=== PATIENT | male | born 1960 | race Caucasian/White ===

== ENCOUNTER → 2018-03-26 09:20 | Outpatient (CLI) | payer OTHER, SELFPAY ==
--- NOTE | 2018-03-26 09:20 | DT_ITS ---
This patient was seen during an EMR downtime March 24, 2018 - March 31, 2018. This patient may have a combination of paper and electronic documentation or all paper documentation. All documentation is viewable within the e-chart portion of [employer] for each patient visit.
[2018-03-30 15:23] LABS: Hematocrit 45.2 % (40-54); Mean Corpuscular Volume 87.4 fL (80-94); Red Blood Count 5.17 M/mm3 (4.6-6.2)
[2018-03-30 15:24] LABS: Absolute Lymphocyte Count 1.61 X10^3/ul (0.83-4.51); Absolute Neutrophil Count 3.6 X10^3/uL (2.0-7.7); Basophil# 0.02 X10^3/uL; Basophil% 0.3 % (0-1); Eosinophil# 0.19 X10^3/uL; Eosinophils% 3.2 % (0-5); Lymphocyte # 1.61 X10^3/ul (4.0); Lymphocyte % 26.7 % (19-41); Mean Corp Hgb Conc 35.4 g/gl (32-36); Mean Corpuscular Hgb 30.9 pg (27.0-32.0); Mean Platelet Vol. 9.7 fl (6.2-12.0); Monocyte# 0.57 X10^3/uL; Monocyte% 9.5 % (0-10); Neutrophil # 3.62 X10^3/uL (2.7-7.7); Neutrophil % 60.1 % (47-70); POSITIVE COUNT NO; POSITIVE DIFFERENTIAL NO; POSITIVE MORPHOLOGY NO; Platelet Count 284 K/mm3 (150-450); RBC Distribution Width CV 12.8 % (11.6-14.6); RBC Distribution Width SD 40.9 fl (35.1-43.9)
[2018-03-31 16:19] LABS: BUN 13 mg/dL (7-18); BUN/Creat Ratio 13.1 RATIO (10-20); Creatinine, Serum 0.99 mg/dL (0.70-1.30); EST Glomerular Filtration Rate 83 mL/min (>60); Est Glom Filt Rate - Afr Amer 101 mL/min (>60); Glucose 93 mg/dL (74-106)
[2018-03-31 16:20] LABS: Anion Gap 9 (5-15); Calcium,Total 8.9 mg/dL (8.5-10.1); Chloride 106 mmol/L (98-107); Cholesterol 161 mg/dL (200); High Density Lipoprotein 44 mg/dL; PSA,Total - Annual Screen 0.49 ng/mL (0.00-4.00); Potassium 4.2 mmol/L (3.5-5.1); Sodium Level 142 mmol/L (136-145); Triglycerides 163 mg/dL; Very Low Density Lipoprotein 33 mg/dL (5-40)
== END ==
PROVIDERS: Family Provider Family Medicine; PCP Family Medicine; Visit Provider Family Medicine
DX: Z00.00 Encounter for general adult medical examination without abnormal findings (principal); Z20.828 Contact with and (suspected) exposure to other viral communicable diseases
CPT/HCPCS: 36415; 80048; 80061; 84153; 85025; 86663; 86664; 86665; G0103

== ENCOUNTER → 2019-05-08 | Outpatient (CLI) | payer OTHER, SELFPAY ==
[2019-05-08 10:16] LABS: Anion Gap 6 (5-15); BUN 16 mg/dL (7-18); BUN/Creat Ratio 15.1 RATIO (10-20); Calcium,Total 9.1 mg/dL (8.5-10.1); Chloride 107 mmol/L (98-107); Cholesterol 173 mg/dL (200); Creatinine, Serum 1.06 mg/dL (0.70-1.30); EST Glomerular Filtration Rate 76 mL/min (>60); Est Glom Filt Rate - Afr Amer 92 mL/min (>60); Glucose 102 mg/dL (74-106); High Density Lipoprotein 39 mg/dL; PSA,Total - Annual Screen 0.39 ng/mL (0.00-4.00); Potassium 4.1 mmol/L (3.5-5.1); Sodium Level 140 mmol/L (136-145); Triglycerides 164 mg/dL; Very Low Density Lipoprotein 33 mg/dL (5-40)
== END | disposition home or self-care (01) ==
LOC: MTLAB 07:10
PROVIDERS: Family Provider Family Medicine; PCP Family Medicine; Referring Provider Family Medicine; Visit Provider Family Medicine
DX: E78.00 Pure hypercholesterolemia, unspecified (principal); Z12.5 Encounter for screening for malignant neoplasm of prostate; R03.0 Elevated blood-pressure reading, without diagnosis of hypertension
CPT/HCPCS: 36415; 80048; 80061; 84153; G0103

== ENCOUNTER → 2020-12-21 08:08 | Outpatient (CLI) | payer OTHER, SELFPAY ==
[2020-12-21 10:31] LABS: ALB/GLOB Ratio 1.3 RATIO (0.9-2.4); AST(SGOT) 24 U/L (15-37); Alanine Aminotransfer ALT/SGPT 25 U/L (16-61); Albumin, Serum 3.8 g/dL (3.2-5.0); Alkaline Phosphatase 69 U/L (45-117); Anion Gap 6 (5-15); BUN 16 mg/dL (7-18); BUN/Creat Ratio 13.9 RATIO (10-20); Chloride 107 mmol/L (98-107); Cholesterol 172 mg/dL (200); Creatinine, Serum 1.15 mg/dL (0.70-1.30); EST Glomerular Filtration Rate 69 mL/min (>60); Est Glom Filt Rate - Afr Amer 83 mL/min (>60); Glucose 100 mg/dL (74-106); High Density Lipoprotein 47 mg/dL; PSA,Total - Annual Screen 0.42 ng/mL (0.00-4.00); Potassium 4.4 mmol/L (3.5-5.1); Protein, Total 6.8 g/dL (6.4-8.2); Sodium Level 141 mmol/L (136-145); Triglycerides 132 mg/dL; Very Low Density Lipoprotein 26 mg/dL (5-40)
== END ==
PROVIDERS: PCP Family Medicine; Referring Provider Family Medicine; Visit Provider Family Medicine
DX: E78.00 Pure hypercholesterolemia, unspecified (principal); Z12.5 Encounter for screening for malignant neoplasm of prostate
CPT/HCPCS: 36415; 80053; 80061; 84153; G0103

== ENCOUNTER → 2022-05-04 | Outpatient (CLI) | payer OTHER, SELFPAY ==
[2022-05-04 10:03] LABS: Absolute Neutrophil Count 4.2 X10^3/uL (2.0-7.7); Basophil# 0.03 X10^3/uL; Basophil% 0.4 % (0-1); Eosinophil# 0.18 X10^3/uL; Eosinophils% 2.6 % (0-5); Hematocrit 48.5 % (40-54); Hemoglobin 16.6 g/dL (13.0-16.5); Lymphocyte % 27.1 % (19-41); Mean Corp Hgb Conc 34.2 g/dL (32-36); Mean Corpuscular Hgb 30.5 pg (27.0-32.0); Mean Corpuscular Volume 89.2 fL (80-94); Mean Platelet Vol. 9.7 fl (6.2-12.0); Monocyte# 0.66 X10^3/uL; Monocyte% 9.4 % (0-10); NRBC Flagged by Analyzer 0 % (0-5); Neutrophil # 4.21 X10^3/uL (2.7-7.7); Neutrophil % 60.1 % (47-70); Platelet Count 290 K/mm3 (150-450); RBC Distribution Width CV 12.7 % (11.6-14.6); RBC Distribution Width SD 41.3 fl (35.1-43.9); Red Blood Count 5.44 M/mm3 (4.6-6.2)
[2022-05-04 10:27] LABS: ALB/GLOB Ratio 1.2 RATIO (0.9-2.4); AST(SGOT) 19 U/L (15-37); Alanine Aminotransfer ALT/SGPT 30 U/L (16-61); Albumin, Serum 3.9 g/dL (3.2-5.0); Alkaline Phosphatase 74 U/L (45-117); Anion Gap 5 (5-15); BUN 15 mg/dL (7-18); BUN/Creat Ratio 14.9 RATIO (10-20); Calcium,Total 9.2 mg/dL (8.5-10.1); Chloride 106 mmol/L (98-107); Cholesterol 197 mg/dL (200); Creatinine, Serum 1.01 mg/dL (0.70-1.30); EST Glomerular Filtration Rate 80 mL/min (>60); Est Glom Filt Rate - Afr Amer 96 mL/min (>60); Globulin 3.2 g/dL (2.2-4.2); Glucose 101 mg/dL (74-106); High Density Lipoprotein 47 mg/dL; PSA,Total - Annual Screen 0.48 ng/mL (0.00-4.00); Potassium 4.2 mmol/L (3.5-5.1); Protein, Total 7.1 g/dL (6.4-8.2); Sodium Level 138 mmol/L (136-145); Triglycerides 210 mg/dL; Very Low Density Lipoprotein 42 mg/dL (5-40)
== END | disposition home or self-care (01) ==
PROVIDERS: PCP Family Medicine; Referring Provider Family Medicine; Visit Provider Family Medicine
DX: E78.00 Pure hypercholesterolemia, unspecified (principal); Z80.42 Family history of malignant neoplasm of prostate; Z12.5 Encounter for screening for malignant neoplasm of prostate
CPT/HCPCS: 36415; 80053; 80061; 84153; 85025; G0103

== ENCOUNTER → 2023-12-27 | Outpatient (CLI) | payer OTHER, SELFPAY ==
--- OUTSIDE RECORDS SUMMARY | 2023-12-27 07:13 | XMS RPT_ITS | CCD ---
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 Name Role Phone Sunshine Carvajal LPN N Unavailable [phone] Sunshine Carvajal LPN Unavailable [phone] Allergies Allergy Classification Reported Allergen(s) Allergy Type Date of Onset Reaction(s) Facility (2 sources) Sulfonamides (Antibiotic) drug allergy 03-24-2017 [facility] Work Phone: Medications Completed/Discontinued Medications Medication Drug Class(es) Dates Sig (Normalized) Sig (Original) amoxicillin 500 mg oral capsule (2 sources) Penicillin-class Antibacterial Start: 03-24-2017 End: 04-03-2017 take 1 tablet by mouth twice daily AMOXICILLIN 500 MG CAPS One tablet by mouth twice daily AMOXICILLIN [id number] Nicolás A Dimas [facility]SE[facility] LIAISON-C atorvastatin 10 mg oral tablet (2 sources) HMG-CoA Reductase Inhibitor Start: 03-24-2017 LIPITOR 10 MG TABS as directed ATORVASTATIN CALCIUM [id number] Nicolás A Dimas [facility]IMBURSEMENT LIAISON-C Problems Active Problems Problem Classification Problem Date Documented Da te Episodic/Chronic Essential hypertension (2 sources) Hypertensive disorder; Translations: [Essential (primary) hypertension] 03-24-2017 Chronic Past or Other Problems Problem Classification Problem Date Documented Date Episodic/Chronic Other upper respiratory infections (4 sources) Streptococcal sore throat; Translations: [Acute pharyngitis] Onset: 03-24-2017 03-24-2017 Episodic Results Test Name Value Interpretation Reference Range Facil ity Vital Signs Date Time Vital Sign Value Performing Clinician Faci lity 03-24-2017 09:17-0400 BMI (Body Mass Index) 22.45 kg/m2 Sunshine Carvajal LPN [facility] Work Phone: 03-24-2017 09:17-0400 Body Temperature 104.2 [degF] Sunshine Carvajal LPN [facility] Work Phone: 03-24-2017 09:17-0400 BP Diastolic 78 mm[Hg] Sunshine Carvajal LPN [facility] Work Phone: 03-24-2017 09:17-0400 BP Systolic 132 mm[Hg] Sunshine Carvajal LPN [facility] Work Phone: 03-24-2017 09:17-0400 Height 191.77 cm Sunshine Carvajal LPN [facility] Work Phone: 03-24-2017 09:17-0400 Pulse (Heart Rate) 106 /min Sunshine Carvajal LPN [facility] Work Phone: 03-24-2017 09:17-0400 Pulse Oximetry 97 % Sunshine Carvajal LPN [facility] Work Phone: 03-24-2017 09:17-0400 Respiratory Rate 16 /min Sunshine Carvajal LPN [facility] Work Phone: 03-24-2017 09:17-0400 Weight 82.56 kg Sunshine Carvajal LPN [facility] Work Phone: Plan of Treatment Date Care Activity Detail Author Start: 03-24-2017 End: 03-24-2017 Appointment Appointment [facility] Work Phone: Patient Education [facility] Work Phone: Additional Source Comments FOR RECORDS PERTAINING TO PATIENTS WHO ARE OR HAVE BEEN ENROLLED IN A CHEMICAL DEPENDENCY/SUBSTANCEABUSE PROGRAM, SOME INFORMATION MAY BE OMITTED. This clinical summary was aggregated from multiple sources. Caution should be exercised in using it in the provision of clinical care. This summary normalizes information from multiple sources, and as a consequence, information in this document may materially change the coding, format and clinical context of patient data. In addition, data may be omitted in some cases. CLINICAL DECISIONS SHOULD BE BASED ON THE PRIMARY CLINICAL RECORDS. [employer] [facility]. provides no warranty or guarantee of the accuracy or completeness of information in this document.
[2023-12-27 10:33] LABS: Hemoglobin A1c 5.3 % (3.8-5.6)
[2023-12-27 10:44] LABS: Cholesterol 204 mg/dL (200); High Density Lipoprotein 50 mg/dL; PSA,Total - Annual Screen 0.49 ng/mL (0.00-4.00); Triglycerides 119 mg/dL; Very Low Density Lipoprotein 24 mg/dL (5-40)
== END | disposition home or self-care (01) ==
LOC: MTLAB 07:11
PROVIDERS: PCP Family Medicine; Referring Provider Nurse Practitioner Family; Visit Provider Nurse Practitioner Family
DX: Z13.1 Encounter for screening for diabetes mellitus (principal); Z12.5 Encounter for screening for malignant neoplasm of prostate; Z13.220 Encounter for screening for lipoid disorders
CPT/HCPCS: 36415; 80061; 83036; 84153; G0103

== ENCOUNTER → 2025-03-08 | Outpatient (CLI) | payer MEDICARE, SELFPAY ==
[2025-03-08 12:30] LABS: Absolute Lymphocyte Count 1.26 X10^3/uL (0.83-4.51); Absolute Neutrophil Count 2.8 X10^3/uL (2.0-7.7); Basophil# 0.03 X10^3/uL; Basophil% 0.6 % (0-1); Eosinophil# 0.11 X10^3/uL; Eosinophils% 2.4 % (0-5); Hematocrit 47.8 % (40-54); Hemoglobin 16.6 g/dL (13.0-16.5); Lymphocyte # 1.26 X10^3/ul (0.83-4.51); Lymphocyte % 27.2 % (19-41); Mean Corp Hgb Conc 34.7 g/dL (32-36); Mean Corpuscular Hgb 30.2 pg (27.0-32.0); Mean Corpuscular Volume 87.1 fL (80-94); Mean Platelet Vol. 9.4 fl (6.2-12.0); Monocyte# 0.42 X10^3/uL; Monocyte% 9.1 % (0-10); NRBC Flagged by Analyzer 0 % (0-5); Neutrophil # 2.82 X10^3/uL (2.7-7.7); Neutrophil % 60.7 % (47-70); Platelet Count 291 K/mm3 (150-450); RBC Distribution Width CV 12.7 % (11.6-14.6); RBC Distribution Width SD 40.6 fl (35.1-43.9); Red Blood Count 5.49 M/mm3 (4.6-6.2); White Blood Count 4.6 K/mm3 (4.4-11.0)
[2025-03-08 14:08] LABS: ALB/GLOB Ratio 1.9 RATIO (0.9-2.4); AST(SGOT) 24 U/L (<=37); Alanine Aminotransfer ALT/SGPT 16 U/L (<=46); Albumin, Serum 4.7 g/dL (3.4-4.8); Alkaline Phosphatase 74 U/L (40-129); Anion Gap 11 (5-15); BUN 15 mg/dL (4-19); BUN/Creat Ratio 15.3 RATIO (10-20); Calcium,Total 9.7 mg/dL (7.6-11.0); Carbon Dioxide 24.2 mmol/L (21.0-32.0); Chloride 102 mmol/L (98-108); Cholesterol 228 mg/dL (<=200); EST Glomerular Filtration Rate 84 (>60); Globulin 2.5 g/dL (2.2-4.2); Glucose 108 mg/dL (70-99); High Density Lipoprotein 47 mg/dL; Low Density Lipoprotein Calc. 152 mg/dL; Potassium 4.4 mmol/L (3.3-5.1); Protein, Total 7.3 g/dL (5.9-8.4); Sodium Level 137 mmol/L (133-145); Total Bilirubin 0.77 mg/dL (0.00-1.30); Triglycerides 146 mg/dL; Very Low Density Lipoprotein 29 mg/dL (5-40)
[2025-03-08 14:12] LABS: PSA,Total - Annual Screen 0.51 ng/mL (0.02-4.00); Vitamin D,25 Hydroxy 26.2 ng/mL (30-100)
== END | disposition home or self-care (01) ==
PROVIDERS: PCP Family Medicine; Referring Provider Family Medicine; Visit Provider Family Medicine
DX: R03.0 Elevated blood-pressure reading, without diagnosis of hypertension (principal); Z13.1 Encounter for screening for diabetes mellitus; E78.00 Pure hypercholesterolemia, unspecified; Z12.5 Encounter for screening for malignant neoplasm of prostate
CPT/HCPCS: 36415; 80053; 80061; 82306; 84153; 85025; G0103

== ENCOUNTER → 2025-04-15 | Outpatient (CLI) | payer MEDICARE, SELFPAY ==
--- NOTE | 2025-04-15 08:03 | ECHOD_ITS ---
Reason For Study Reason For Study: Left Atrial Enlargement Procedure This was a 2D Doppler, Color Flow transthoracic echocardiogram. Exam performed in department. Left Ventricle Normal size and thickness. The LV ejection fraction is 65 %. Normal diastololic function. Right Ventricle Normal right ventricle. Atria The left and right atria are normal. Mitral Valve Normal mitral valve. Tricuspid Valve Trivial tricuspid valve insufficiency. Normal pulmonary artery pressure. Aortic Valve Trisinus/trileaflet aortic valve. Pulmonic Valve The pulmonic valve is not well visualized. Great Vessels Normal sized aortic root. Pericardium/Pleural No pericardial effusion. MMode/2D Measurements & Calculations LVIDd: 5.5 cm IVSd: 1.1 cm Ao root diam: 3.6 cm LVIDs: 3.4 cm LVPWd: 0.88 cm RVDd: 3.8 cm FS: 39.1 % LAV(MOD-bp): 20.6 ml LVAd ap4: 27.1 cm2 SV(MOD-sp4): 54.5 ml LAV(MOD-bp) Indexed: 9.9 ml/m2 LVLd ap4: 7.2 cm SI(MOD-sp4): 26.3 ml/m2 LAV(MOD-sp2): 20.4 ml EDV(MOD-sp4): 84.9 ml LAV(MOD-sp4): 20.6 ml EDV(sp4-el): 86.2 ml LVAs ap4: 14.2 cm2 LVLs ap4: 5.8 cm ESV(MOD-sp4): 30.4 ml ESV(sp4-el): 29.5 ml EF(MOD-sp4): 64.2 % EF(sp4-el): 65.8 % SV(sp4-el): 56.8 ml LA A4 area: 9.8 cm2 LA dimension(2D): 2.9 cm RA A4 area: 13.9 cm2 TAPSE: 2.5 cm Time Measurements MV dec time: 0.17 sec Doppler Measurements & Calculations MV E max jamison: 77.0 cm/sec Lat Peak E' Jamison: 11.3 cm/sec Med Peak E' Jamison: 11.0 cm/sec MV A max jamison: 72.1 cm/sec E/E' lat: 6.8 E/E' med: 7.0 MV E/A: 1.1 MV V2 max: 103.9 cm/sec MV P1/2t max jamison: 103.9 cm/sec Ao V2 max: 129.0 cm/sec MV max P.3 mmHg MV P1/2t: 70.1 msec Ao max P.7 mmHg MV V2 mean: 60.8 cm/sec Ao V2 mean: 98.5 cm/sec MV mean P.7 mmHg MV dec slope: 433.9 cm/sec2 Ao mean P.3 mmHg MV V2 VTI: 24.3 cm MVA(P1/2t): 3.1 cm2 Ao V2 VTI: 29.0 cm AV (velocity ratio): 0.86 LV V1 max: 120.3 cm/sec PA V2 max: 94.1 cm/sec TR max jamison: 198.4 cm/sec LV V1 max P.8 mmHg TR max P.7 mmHg LV V1 mean P.4 mmHg LV V1 mean: 87.1 cm/sec LV V1 VTI: 25.0 cm ECHO/Echo Complete Interpretation Summary The LV ejection fraction is 65 %. Ordering Physician: Arlene Cadrenas Referring Physician: Arlene Cardenas Performed By: Joey Tran RCS
--- OUTSIDE RECORDS SUMMARY | 2025-04-15 08:27 | XMS RPT_ITS | CCD ---
Author Organization [facility] Care Team Providers Care Senior Insight Manager [employer] Name Role Phone Sunshine Carvajal LPN Unavailable [phone] Sunshine Carvajal LPN Unavailable [phone] ALBERTO BROWN, DR GREEN Primary Care Physician NATANAEL BROWN, DR GUERRA Attending Unavailabl e DR SHYLA DOMINGUEZ MD Primary Care Unavailable Arlene Cardenas Referring Unavailable Arlene Cardenas Attending Unavailable Arlene Cardenas Primary Care Unavailable TheresaArlene Primary Care Unavailable Arlene Cardenas Referring Unavailable Arlene Cardenas Attending Unavailable Allergies Allergy Classification Reported Allergen(s) Allergy Type Date of Onset Reaction(s) Facility (2 sources) Sulfonamides (Antibiotic) drug allergy 03-24-2017 [facility] Work Phone: (1 source) Erythromycin; Translations: [erythromycin] Drug Allergy [facility] (1 source) Sulfonamide; Translations: [sulfa drugs] Drug allergy [facility] Medications Completed/Discontinued Medications Medication Drug Class(es) Dates Sig (Normalized) Sig (Original) amoxicillin 500 mg oral capsule (2 sources) Penicillin-class Antibacterial Start: 03-24-2017 End: 04-03-2017 take 1 tablet by mouth twice daily AMOXICILLIN 500 MG CAPS One tablet by mouth twice daily AMOXICILLIN [id number] Nicolás Mauricio Dimas 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 atorvastatin 10 mg oral tablet (2 sources) HMG-CoA Reductase Inhibitor Start: 03-24-2017 LIPITOR 10 MG TABS as directed ATORVASTATIN CALCIUM [id number] Nicolás Dimas 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 Problems Active Problems Problem Classification Problem Date Documented Da te Episodic/Chronic Essential hypertension (2 sources) Hypertensive disorder; Translations: [Essential (primary) hypertension] 03-24-2017 Chronic Other and ill-defined heart disease (1 source) Cardiomegaly; Translations: [Cardiomegaly] Onset: 04-08-2025 Chronic Other circulatory disease (1 source) Elevated blood-pressure reading, without diagnosis of hypertension; Translations: [Elevated blood-pressure reading, without diagnosis of hypertension] Onset: 03-12-2025 Episodic Past or Other Problems Problem Classification Problem Date Documented Date Episodic/Chronic Other upper respiratory infections (4 sources) Streptococcal sore throat; Translations: [Acute pharyngitis] Onset: 03-24-2017 03-24-2017 Episodic Results Test Name Value Interpretation Reference Range Facility CBC W/Diff, Automatedon 02-18 Absolute Lymph 1.26 X10 3/uL Normal 0.83-4.51 [facility] Comment on above: Order Comment: Order Date: 03/08/25 Order Info: 0184-1 - CBCD Performed By: #### L 100.0100, L500.4050, L501.9910, L500.4100 #### [facility] [address] [facility] [address] Absolute Neut 2.8 X10 3/uL Normal 2.0-7.7 [facility] Comment on above: Order Comment: Order Date: 03/08/25 Order Info: 0184-1 - CBCD Performed By: #### L 100.0100, L500.4050, L501.9910, L500.4100 #### [facility] [address] [place], [address] Basophils/100 WBC (Bld) 0.6 % Normal 0-1 [facility] Comment on above: Order Comment: Order Date: 03/08/25 Order Info: 0184-1 - CBCD Performed By: #### L 100.0100, L500.4050, L501.9910, L500.4100 #### [facility] [address] [facility] [address] Eosinophils/100 WBC (Bld) 2.4 % Normal 0-5 [facility] Comment on above: Order Comment: Order Date: 03/08/25 Order Info: 0184-1 - CBCD Performed By: #### L 100.0100, L500.4050, L501.9910, L500.4100 #### [facility] [address] [place], [address] Erythrocyte distribution width (RBC) [Ratio] 12.7 % Normal 11.6-14.6 [facility] Comment on above: Order Comment: Order Date: 03/08/25 Order Info: 0184- - CBCD Performed By: #### L 100.0100, L500.4050, L501.9910, L500.4100 #### [facility] [address] [place], [address] Hematocrit (Bld) [Volume fraction] 47.8 % Normal 40-54 [facility] Comment on above: Order Comment: Order Date: 03/08/25 Order Info: 0184- - CBCD Performed By: #### L 100.0100, L500.4050, L501.9910, L500.4100 #### [facility] [address] [place], [address] Hemoglobin (Bld) [Mass/Vol] 16.6 g/dL High 13.0-16.5 [facility] Comment on above: Order Comment: Order Date: 03/08/25 Order Info: 0184-1 - CBCD Performed By: #### L 100.0100, L500.4050, L501.9910, L500.4100 #### [facility] [address] [place], [address] IG% 0.000 Normal 0.0-0.9 [facility] Comment on above: Order Comment: Order Date: 03/08/25 Order Info: 0184-1 - CBCD Result Comment: IG% - Immature Granulocytes (promyelocytes, myelocytes and metamyelocytes) > 1% indicates that a LEFT SHIFT is Present. Performed By: #### L 100.0100, L500.4050, L501.9910, L500.4100 #### [facility] [address] [place], [address] Lymphocytes/100 WBC (Bld) 27.2 % Normal 19-41 [facility] Comment on above: Order Comment: Order Date: 03/08/25 Order Info: 0184-1 - CBCD Performed By: #### L 100.0100, L500.4050, L501.9910, L500.4100 #### [facility] [address] [place], [address] MCH (RBC) [Entitic mass] 30.2 pg Normal 27.0-32.0 [facility] Comment on above: Order Comment: Order Date: 03/08/25 Order Info: 018- - CBCD Performed By: #### L 100.0100, L500.4050, L501.9910, L500.4100 #### [facility] [address] [place], [address] MCHC (RBC) [Mass/Vol] 34.7 g/dL Normal 32-36 [facility] Comment on above: Order Comment: Order Date: 03/08/25 Order Info: 0184-1 - CBCD Performed By: #### L 100.0100, L500.4050, L501.9910, L500.4100 #### [facility] [address] [place], [address] MCV (RBC) [Entitic vol] 87.1 fL Normal 80-94 [facility] Comment on above: Order Comment: Order Date: 03/08/25 Order Info: 0184-1 - CBCD Performed By: #### L 100.0100, L500.4050, L501.9910, L500.4100 #### [facility] [address] [place], [address] Monocytes/100 WBC (Bld) 9.1 % Normal 0-10 [facility] Comment on above: Order Comment: Order Date: 03/08/25 Order Info: 0184-1 - CBCD Performed By: #### L 100.0100, L500.4050, L501.9910, L500.4100 #### [facility] [address] [place], [address] Neutrophils/100 WBC (Bld) 60.7 % Normal 47-70 [facility] Comment on above: Order Comment: Order Date: 03/08/25 Order Info: 0184-1 - CBCD Performed By: #### L 100.0100, L500.4050, L501.9910, L500.4100 #### [facility] [address] [place], [address] Nucleated RBC (Bld) [#/Vol] 0 10*3/uL Normal 0-5 [facility] Comment on above: Order Comment: Order Date: 03/08/25 Order Info: 0184-1 - CBCD Performed By: #### L 100.0100, L500.4050, L501.9910, L500.4100 #### [facility] [address] [place], [address] Platelet mean volume (Bld) [Entitic vol] 9.4 fL Normal 6.2-12.0 [facility] Comment on above: Order Comment: Order Date: 03/08/25 Order Info: 0184-1 - CBCD Performed By: #### L 100.0100, L500.4050, L501.9910, L500.4100 #### [facility] [address] [place], [address] Platelets (Bld) [#/Vol] 291 10*3/uL Normal 150-450 [facility] Comment on above: Order Comment: Order Date: 03/08/25 Order Info: 0184- - CBCD Performed By: #### L 100.0100, L500.4050, L501.9910, L500.4100 #### [facility] [address] [place], [address] RBC (Bld) [#/Vol] 5.49 10*6/uL Normal 4.6-6.2 [facility] Comment on above: Order Comment: Order Date: 03/08/25 Order Info: 0184- - CBCD Performed By: #### L 100.0100, L500.4050, L501.9910, L500.4100 #### [facility] [address] [place], [address] RDW SD 40.6 fl Normal 35.1-43.9 [facility] Comment on above: Order Comment: Order Date: 03/08/25 Order Info: 0184- - CBCD Performed By: #### L 100.0100, L500.4050, L501.9910, L500.4100 #### [facility] [address] [place], [address] WBC (Bld) [#/Vol] 4.6 10*3/uL Normal 4.4-11.0 [facility] Comment on above: Order Comment: Order Date: 03/08/25 Order Info: 0184- - CBCD Performed By: #### L 100.0100, L500.4050, L501.9910, L500.4100 #### [facility] [address] [place], [address] Comprehensive Metabolic Prof ilon 03-08-2025 Albumin [Mass/Vol] 4.7 g/dL Normal 3.4-4.8 [facility] Comment on above: Order Comment: Order Date: 03/08/25 Order Info: 0786-1 - CMP Order Info: [id number] - LIPID Order Info: [id number] - PSA Performed By: #### L 100.0100, L500.4050, L501.9910, L500.4100 #### [facility] [address] [place], [address] Albumin/Globulin [Mass ratio] 1.9 {ratio} Normal 0.9-2.4 [facility] Comment on above: Order Comment: Order Date: 03/08/25 Order Info: [id number] - CMP Order Info: - LIPID Order Info: [id number] - PSA Performed By: #### L 100.0100, L500.4050, L501.9910, L500.4100 #### [facility] [address] [place], [address] ALK PHOS 74 U/L Normal 40-129 [facility] Comment on above: Order Comment: Order Date: 03/08/25 Order Info: 07 - CMP Order Info: - LIPID Order Info: [id number] - PSA Performed By: #### L 100.0100, L500.4050, L501.9910, L500.4100 #### [facility] [address] [place], [address] ALT [Catalytic activity/Vol] 16 U/L Normal <=46 [facility] Comment on above: Order Comment: Order Date: 03/08/25 Order Info: 0786 - CMP Order Info: - LIPID Order Info: [id number] - PSA Performed By: #### L 100.0100, L500.4050, L501.9910, L500.4100 #### [facility] [address] [place], [address] AST [Catalytic activity/Vol] 24 U/L Normal <=37 [facility] Comment on above: Order Comment: Order Date: 03/08/25 Order Info: 0786- - CMP Order Info: - LIPID Order Info: [id number] - PSA Performed By: #### L 100.0100, L500.4050, L501.9910, L500.4100 #### [facility] [address] [place], [address] Bilirubin [Mass/Vol] 0.77 mg/dL Normal 0.00-1.30 [facility] Comment on above: Order Comment: Order Date: 03/08/25 Order Info: 785-1 - CMP Order Info: [id number] - LIPID Order Info: 1 - PSA Performed By: #### L 100.0100, L500.4050, L501.9910, L500.4100 #### [facility] [address], [address] BUN/CRE 15.3 RATIO Normal 10-20 [facility] Comment on above: Order Comment: Order Date: 03/08/25 Order Info: [id number] - CMP Order Info: - LIPID Order Info: [id number] - PSA Performed By: #### L 100.0100, L500.4050, L501.9910, L500.4100 #### [facility] [address] [place], [address] Calcium [Mass/Vol] 9.7 mg/dL Normal 7.6-11.0 [facility] Comment on above: Order Comment: Order Date: 03/08/25 Order Info: [id number] - CMP Order Info: - LIPID Order Info: [id number] - PSA Performed By: #### L 100.0100, L500.4050, L501.9910, L500.4100 #### [facility] [address] [place], [address] Chloride [Moles/Vol] 102 mmol/L Normal 98-108 [facility] Comment on above: Order Comment: Order Date: 03/08/25 Order Info: 785-1 - CMP Order Info: [id number] - LIPID Order Info: 1 - PSA Performed By: #### L 100.0100, L500.4050, L501.9910, L500.4100 #### [facility] [address] [place], [address] CO2 [Moles/Vol] 24.2 mmol/L Normal 21.0-32.0 [facility] Comment on above: Order Comment: Order Date: 03/08/25 Order Info: 785- - CMP Order Info: - LIPID Order Info: [id number] - PSA Performed By: #### L 100.0100, L500.4050, L501.9910, L500.4100 #### [facility] [address] [place], [address] Creatinine [Mass/Vol] 1.00 mg/dL Normal 0.70-1.20 [facility] Comment on above: Order Comment: Order Date: 03/08/25 Order Info: 785-10 - CMP Order Info: [id number] - LIPID Order Info: [id number] - PSA Performed By: #### L 100.0100, L500.4050, L501.9910, L500.4100 #### [facility] [address] [place], [address] GAP 11 Normal 5-15 [facility] Comment on above: Order Comment: Order Date: 03/08/25 Order Info: 07 - CMP Order Info: [id number] - LIPID Order Info: [id number] - PSA Performed By: #### L 100.0100, L500.4050, L501.9910, L500.4100 #### [facility] [address] [place], [address] GFR/1.73 sq M.predicted among non-blacks MDRD (S/P/Bld) [Vol rate/Area] 84 mL/min/{1.73_m2} Normal >60 [facility] Comment on above: Order Comment: Order Date: 03/08/25 Order Info: 07- - CMP Order Info: [id number] - LIPID Order Info: [id number] - PSA Result Comment: mL/m in/1.73m2 CKD-EPI Creatinine Equation (2020) Performed By: #### L 100.0100, L500.4050, L501.9910, L500.4100 #### [facility] [address] [place], [address] Globulin (S) [Mass/Vol] 2.5 g/dL Normal 2.2-4.2 [facility] Comment on above: Order Comment: Order Date: 03/08/25 Order Info: [id number] - CMP Order Info: [id number] - LIPID Order Info: [id number] - PSA Performed By: #### L 100.0100, L500.4050, L501.9910, L500.4100 #### [facility] [address], [address] Glucose [Mass/Vol] 108 mg/dL High 70-99 [facility] Comment on above: Order Comment: Order Date: 03/08/25 Order Info: [id number] - CMP Order Info: [id number] - LIPID Order Info: [id number] - PSA Performed By: #### L 100.0100, L500.4050, L501.9910, L500.4100 #### [facility] [address] [place], [address] Potassium [Moles/Vol] 4.4 mmol/L Normal 3.3-5.1 [facility] Comment on above: Order Comment: Order Date: 03/08/25 Order Info: 0786-1 - CMP Order Info: [id number] - LIPID Order Info: [id number] - PSA Performed By: #### L 100.0100, L500.4050, L501.9910, L500.4100 #### [facility] [address], [address] Sodium [Moles/Vol] 137 mmol/L Normal 133-145 [facility] Comment on above: Order Comment: Order Date: 03/08/25 Order Info: 0786- - CMP Order Info: [id number] - LIPID Order Info: [id number] - PSA Performed By: #### L 100.0100, L500.4050, L501.9910, L500.4100 #### [facility] [address] [place], [address] T PROT 7.3 g/dL Normal 5.9-8.4 [facility] Comment on above: Order Comment: Order Date: 03/08/25 Order Info: 07 - CMP Order Info: [id number] - LIPID Order Info: [id number] - PSA Performed By: #### L 100.0100, L500.4050, L501.9910, L500.4100 #### [facility] [address] [place], [address] Urea nitrogen [Mass/Vol] 15 mg/dL Normal 4-19 [facility] Comment on above: Order Comment: Order Date: 03/08/25 Order Info: 07 - CMP Order Info: [id number] - LIPID Order Info: [id number] - PSA Performed By: #### L 100.0100, L500.4050, L501.9910, L500.4100 #### [facility] [address] [place], [address] Lipid Profileon 03-08-2025 CHOL:HDL 4.90 Normal [facility] Comment on above: Order Comment: Order Date: 03/08/25 Order Info: 07 - CMP Order Info: [id number] - LIPID Order Info: [id number] - PSA Performed By: #### L 100.0100, L500.4050, L501.9910, L500.4100 #### [facility] [address], [address] Cholesterol [Mass/Vol] 228 mg/dL High <=200 [facility] Comment on above: Order Comment: Order Date: 03/08/25 Order Info: 0786 - CMP Order Info: [id number] - LIPID Order Info: [id number] - PSA Result Comment: Chol esterol level, Desirable <200 mg/dL Borderline high cholesterol 200-239 mg/dL High cholesterol >=240 mg/dL Recommendations of the NCEP Adult Treatment Panel for the following risk-cutoff thresholds for the [place] population. Performed By: #### L 100.0100, L500.4050, L501.9910, L500.4100 #### [facility] [address] [place], [address] Cholesterol in HDL [Mass/Vol] 47 mg/dL Normal [facility] Comment on above: Order Comment: Order Date: 03/08/25 Order Info: 0786-1 - CMP Order Info: [id number] - LIPID Order Info: [id number] - PSA Result Comment: Rosario onal Cholesterol Education Program (NCEP) guidelines: <40 mg/dL: Low HDL-cholesterol (major risk factor for CHD) >= 60 mg/dL: High HDL-cholesterol (negative risk factor for CHD) HDL-cholesterol is affected by a number of factors, e.g. smoking, exercise, hormones, sex and age. Performed By: #### L 100.0100, L500.4050, L501.9910, L500.4100 #### [facility] [address] [place], [address] Cholesterol in LDL [Mass/Vol] 152 mg/dL Normal [facility] Comment on above: Order Comment: Order Date: 03/08/25 Order Info: 0786-1 - CMP Order Info: [id number] - LIPID Order Info: [id number] - PSA Result Comment: Bord jmjdxq=577-773 mg/dL Higher Dncv=902 mg/dL or greater Performed By: #### L 100.0100, L500.4050, L501.9910, L500.4100 #### [facility] [address] [place], [address] Cholesterol in VLDL [Mass/Vol] 29 mg/dL Normal 5-40 [facility] Comment on above: Order Comment: Order Date: 03/08/25 Order Info: 0786-1 - CMP Order Info: [id number] - LIPID Order Info: [id number] - PSA Performed By: #### L 100.0100, L500.4050, L501.9910, L500.4100 #### [facility] [address] [place], [address] Triglyceride [Mass/Vol] 146 mg/dL Normal [facility] Comment on above: Order Comment: Order Date: 03/08/25 Order Info: [id number]- - CMP Order Info: [id number] - LIPID Order Info: [id number] - PSA Result Comment: The drugs N-Acetylcysteine and Metamizole may falsely depress this assay. Normal range: <150 mg/dL Borderline High: 150-199 mg/dL High: 200-499 mg/dL Very High: >500 mg/dL Performed By: #### L 100.0100, L500.4050, L501.9910, L500.4100 #### [facility] [address] [place], [address] PSA,Total - Annual Screenon 03-08-2025 PSA,TOT SCREEN 0.51 ng/mL Normal 0.02-4.00 [facility] Comment on above: Order Comment: Order Date: 03/08/25 Order Info: [id number] - CMP Order Info: [id number] - LIPID Order Info: [id number] - PSA Result Comment: This test was performed using the [employer] tPSA method. Measured values of a patient??sample can vary depending on the testing procedure used. PSA values determined on patient samples by different testing procedures cannot be used interchangeably. If there is a change in PSA assays while monitoring therapy, sequential testing should be performed to confirm baseline values. Performed By: #### L 100.0100, L500.4050, L501.9910, L500.4100 #### [facility] [address] [place], [address] Vitamin D,25 Hydroxyon 03-08 Vitamin D 25-OH 26.2 ng/mL Low 30-100 [facility] Comment on above: Order Comment: Order Date: 03/08/25 Order Info: 0786-1 - CMP Order Info: [id number] - LIPID Order Info: [id number] - PSA Result Comment: Edwina min D Status Deficiency: <20 ng/mL (50nmol/L) Insufficiency: 20-30 ng/mL (50-75 nmol/L) Sufficiency: 30-100 ng/mL (75-250 nmol/L) Toxicity: >100 ng/mL (>250 nmol/L) Performed By: #### L 506.1001 #### [facility] [address] [place], [address] Basophil percentageOrdered B y: Chuyita Stevens on 12-27-2023 Cholesterol [Mass/Vol] 204 mg/dL <200 [facility] Comment on above: <200 mg/dL Desirable 200-240 mg/dL Borderline >240 mg/dL High Risk Triglyceride [Mass/Vol] 119 mg/dL <199 [facility] Comment on above: The drugs N-Acetylcy steine and Metamizole may falsely depress this assay.Serum Triglycerides Reference Interval Normal <150 mg/dL Borderline high 150 - 199 mg/dL High 200 - 499 mg/dL Very High > or = 500 mg/dL Laboratory - Chemistry and C hemistry - challengeOrdered By: Chuyita Stevens on 12-27-2023 Cholesterol in HDL [Mass/Vol] 50 mg/dL >40 [facility] Comment on above: The drugs N-Acetylcy steine and Metamizole may falsely depress this assay. Reference Range HDL <40 mg/dL Low HDL Cholesterol HDL >or= 60 mg/dL High HDL Cholesterol Cholesterol in LDL [Mass/Vol] 130 mg/dL 0-130 [facility] No Panel InformationOrdered By: Chuyita Stevens on 12-27-2023 Prostate Specific Antigen Screen 0.49 ng/mL 0.00-4.00 [facility] Comment on above: This test was perfor med using the TPSA assay method [facility] the[facility] chemistry system. Values obtained with differentassay methods cannot be used interchangably.When changing PSA assays in the course of monitoring apatient, additional sequential testing should be carriedout to confirm baseline values. VLDL Cholesterol 24 mg/dL 5-40 [facility] Whole blood hemoglobin A1c/t otal hemoglobin ratio (mass fraction)Ordered By: Chuyita Stevens on 12-27-2023 HbA1c (Bld) [Mass fraction] 5.3 % 3.8-5.6 [facility] Comment on above: Normal < 5.7 % Predi abetic 5.7 - 6.4 % Diabetic >or= 6.5 % Please note range changes. Absolute lymphocyte counton 05-04-2022 Lymphocytes Auto (Unsp spec) [#/Vol] 1.90 10*3/uL 0.83-4.51 [facility] Work Phone: Basophil percentageon 2021 Basophils/100 WBC (Bld) 0.4 % 0-1 [facility] Work Phone: Bilirubin [Mass/Vol] 0.70 mg/dL 0.20-1.00 [facility] Work Phone: Comment on above: For patients on eltr ombopag therapy, use of Dimension [place] TBIL is not recommended. Chloride [Moles/Vol] 106 mmol/L 98-107 [facility] Work Phone: Cholesterol [Mass/Vol] 197 mg/dL <200 [facility] Work Phone: Comment on above: <200 mg/dL Desirable 200-240 mg/dL Borderline >240 mg/dL High Risk Eosinophils/100 WBC (Bld) 2.6 % 0-5 [facility] Work Phone: Glucose [Mass/Vol] 101 mg/dL 74-106 [facility] Work Phone: Comment on above: Fasting Glucose resu lt from 100 to 125 mg/dL suggests IMPAIRED HOMEOSTASIS per A.D.A. criteria. Neutrophils (Bld) [#/Vol] 4.2 10*3/uL 2.0-7.7 [facility] Work Phone: [phone] Neutrophils/100 WBC (Bld) 60.1 % 47-70 [facility] Work Phone: [phone] Potassium [Moles/Vol] 4.2 mmol/L 3.5-5.1 [facility] Work Phone: Protein [Mass/Vol] 7.1 g/dL 6.4-8.2 [facility] Work Phone: Sodium [Moles/Vol] 138 mmol/L 136-145 [facility] Work Phone: Triglyceride [Mass/Vol] 210 mg/dL <199 [facility] Work Phone: Comment on above: The drugs N-Acetylcy steine and Metamizole may falsely depress this assay.Serum Triglycerides Reference Interval Normal <150 mg/dL Borderline high 150 - 199 mg/dL High 200 - 499 mg/dL Very High > or = 500 mg/dL WBC (Bld) [#/Vol] 7.0 10*3/uL 4.4-11.0 [facility] Work Phone: Blood erythrocytes count (nu mber/volume)on 05-04-2022 RBC (Bld) [#/Vol] 5.44 10*6/uL 4.6-6.2 [facility] Work Phone: Blood hemoglobin measurement (mass/volume)on 05-04-2022 Hemoglobin (Bld) [Mass/Vol] 16.6 g/dL 13.0-16.5 [facility] Work Phone: Blood lymphocytes/100 leukoc yteson 05-04-2022 Lymphocytes/100 WBC (Bld) 27.1 % 19-41 [facility] Work Phone: Blood monocytes/100 leukocyt eson 05-04-2022 Monocytes/100 WBC (Bld) 9.4 % 0-10 [facility] Work Phone: Blood platelet mean volumeon 05-04-2022 Platelet mean volume (Bld) [Entitic vol] 9.7 fL 6.2-12.0 [facility] Work Phone: Determination of erythrocyte mean corpuscular volume (MCV)on 05-04-2022 MCV (RBC) [Entitic vol] 89.2 fL 80-94 [facility] [facility] Work Phone: Hematocrit Auto (Bld) [Volum e fraction]on 05-04-2022 Hematocrit (Bld) [Volume fraction] 48.5 % 40-54 [facility] Work Phone: Laboratory - Chemistry and C hemistry - challengeon 05-04-2022 ALP [Catalytic activity/Vol] 74 U/L 45-117 [facility] Work Phone: ALT [Catalytic activity/Vol] 30 U/L 16-61 [facility] Work Phone: [phone] CO2 [Moles/Vol] 27.0 mmol/L 21.0-32.0 [facility] Work Phone: [phone] Globulin (S) [Mass/Vol] 3.2 g/dL 2.2-4.2 W [facility] Work Phone: Urea nitrogen/Creatinine [Mass ratio] 14.9 mg/mg 10-20 [facility] Work Phone: [phone] Laboratory - Hematology and Cell countson 05-04-2022 Erythrocyte distribution width (RBC) [Entitic vol] 41.3 fL 35.1-43.9 [facility] Work Phone: Erythrocyte distribution width (RBC) [Ratio] 12.7 % 11.6-14.6 [facility] Work Phone: Immature granulocytes/100 WBC (Bld) 0.400 % 0.0-0.9 [facility] Work Phone: [phone] Comment on above: IG% - Immature Granu locytes (promyelocytes, myelocytes and metamyelocytes) > 1% indicates that a LEFT SHIFT is Present. MCH (RBC) [Entitic mass] 30.5 pg 27.0-32.0 [facility] Work Phone: [phone] Nucleated RBC/100 WBC (Bld) [Ratio] 0 % 0-5 [facility] Work Phone: [phone] MCHC Auto (RBC) [Mass/Vol]on 05-04-2022 MCHC (RBC) [Mass/Vol] 34.2 g/dL 32-36 [facility] Work Phone: No Panel Informationon 05-04 Estimated GFR (MDRD) Amer 96 mL/min >60 [facility] Work Phone: Comment on above: GFR Calc Estimated GFR (MDRD) Non-Af Amer 80 mL/min >60 [facility] Work Phone: Comment on above: Non- GFR Calc Prostate Specific Antigen Screen 0.48 ng/mL 0.00-4.00 [facility] Work Phone: Comment on above: This test was perfor med using the TPSA assay method for [employer] chemistry system. Values obtained with differentassay methods cannot be used interchangably.When changing PSA assays in the course of monitoring apatient, additional sequential testing should be carriedout to confirm baseline values. Platelets bldon 05-04-2022 Platelets (Bld) [#/Vol] 290 10*3/uL 150-450 [facility] Work Phone: Serum or plasma albumin alicia urement (mass/volume)on 05-04-2022 Albumin [Mass/Vol] 3.9 g/dL 3.2-5.0 [facility] Work Phone: Serum or plasma albumin/glob ulin mass ratioon 05-04-2022 Albumin/Globulin [Mass ratio] 1.2 {ratio} 0.9-2.4 [facility] Work Phone: Serum or plasma calcium alicia urement (mass/volume)on 05-04-2022 Calcium [Mass/Vol] 9.2 mg/dL 8.5-10.1 [facility] Work Phone: Serum or plasma cholesterol in HDL measurement (mass/volume)on 05-04-2022 Cholesterol in HDL [Mass/Vol] 47 mg/dL >40 [facility] Work Phone: Comment on above: The drugs N-Acetylcy steine and Metamizole may falsely depress this assay. Reference Range HDL <40 mg/dL Low HDL Cholesterol HDL >or= 60 mg/dL High HDL Cholesterol Serum or plasma cholesterol in VLDL measurement (mass/volume)on 05-04-2022 Cholesterol in VLDL [Mass/Vol] 42 mg/dL 5-40 [facility] Work Phone: Serum or plasma creatinine m easurement (mass/volume)on 05-04-2022 Creatinine [Mass/Vol] 1.01 mg/dL 0.70-1.30 [facility] Work Phone: Comment on above: The validity of the calculated GFR & GFRAA in patients over 70 years has not been determined. Clinical correlation is essential. Serum or plasma low density lipoprotein (LDL) cholesterol measurement (mass/volume)on 05-04-2022 Cholesterol in LDL [Mass/Vol] 108 mg/dL 0-130 [facility] Work Phone: Serum or plasma urea nitroge n measurement (mass/volume)on 05-04-2022 Urea nitrogen [Mass/Vol] 15 mg/dL 7-18 [facility] Work Phone: Thin prep Papanicolaou smear with manual screeningon 05-04-2022 Thin prep Papanicolaou smear with manual screening 19 U/L 15-37 [facility] Work Phone: Thin prep Papanicolaou smear with manual screening 5 5-15 [facility] Work Phone: Office Visit: [facility]: Wicho matias 03-24-2017 Documentation of current medications (procedure) Done Invalid Interpretation Code [facility] Work Phone: Tobacco use [facility] Never smoker Invalid Interpretation Code [facility] Work Phone: Vital Signs Date Time Vital Sign Value Performing Clinician Harris teixeira 04-13-2024 09:37-0400 Diastolic Blood Pressure Non-Invasive 96 mm[Hg] DR CHARLIE SANTOYO MD [facility] 04-13-2024 09:37-0400 Heart rate 68 /min DR CHARLIE SANTOYO MD [facility] 04-13-2024 09:37-0400 Respiratory rate 16 /min DR CHARLIE SANTOYO MD [facility] 04-13-2024 09:37-0400 Systolic Blood Pressure Non-Invasive 126 mm[Hg] DR CHARLIE SANTOYO MD [facility] 04-13-2024 09:31-0400 Diastolic Blood Pressure Non-Invasive 94 mm[Hg] DR CHARLIE SANTOYO MD [facility] 04-13-2024 09:31-0400 Heart rate 60 /min DR CHARLIE SANTOYO MD [facility] 04-13-2024 09:31-0400 Respiratory rate 20 /min DR CHARLIE SANTOYO MD [facility] 04-13-2024 09:31-0400 Systolic Blood Pressure Non-Invasive 120 mm[Hg] DR CHARLIE SANTOYO MD [facility] 04-13-2024 09:26-0400 Diastolic Blood Pressure Non-Invasive 83 mm[Hg] DR CHARLIE SANTOYO MD [facility] 04-13-2024 09:26-0400 Heart rate 58 /min DR CHARLIE SANTOYO MD [facility] 04-13-2024 09:26-0400 Respiratory rate 16 /min DR CHARLIE SANTOYO MD [facility] 04-13-2024 09:26-0400 Systolic Blood Pressure Non-Invasive 129 mm[Hg] DR CHARLIE SANTOYO MD [facility] 04-13-2024 09:15-0400 Respiratory Rate - Anes 22 br/min DR CHARLIE SANTOYO MD [facility] 04-13-2024 09:10-0400 Respiratory Rate - Anes 17 br/min DR CHARLIE SANTOYO MD [facility] 04-13-2024 09:05-0400 Respiratory Rate - Anes 22 br/min DR CHARLIE SANTOYO MD [facility] 04-13-2024 07:59-04[address] Pressure Cuff Size DR CHARLIE SANTOYO MD [facility] 04-13-2024 07:59-[address] CHARLIE SANTOYO MD [facility] 04-13-2024 07:59-[address] CHARLIE SANTOYO MD [facility] 04-13-2024 07:59-0400 Body height [address] CHARLIE SANTOYO MD [facility] 04-13-2024 07:59-0400 Body temperature 98.06 [degF] DR CHARLIE SANTOYO MD [facility] 04-13-2024 07:59-0400 Body weight 81.[address] CHARLIE SANTOYO MD [facility] 04-13-2024 07:59-0400 Body weight 21.96 kg/m2 DR CHARLIE SANTOYO MD [facility] 04-13-2024 07:59-0400 Heart rate 70 /min DR CHARLIE SANTOYO MD [facility] 03-24-2017 09:17-0400 BMI (Body Mass Index) 22.45 kg/m2 Sunshine Carvajal LPN [facility] Work Phone: 03-24-2017 09:17-0400 Body Temperature 104.2 [degF] Sunshine Carvajal LPN [facility] Work Phone: 03-24-2017 09:17-0400 BP Diastolic 78 mm[Hg] Sunshine Carvajal LPN [facility] Work Phone: 03-24-2017 09:17-0400 BP Systolic 132 mm[Hg] Sunshine Carvajal LPN [facility] Work Phone: 03-24-2017 09:17-0400 Height 191.77 cm Sunshine Carvajal LPN [facility] Work Phone: 03-24-2017 09:17-0400 Pulse (Heart Rate) 106 /min Sunshine Carvajal LPN [facility] Work Phone: 03-24-2017 09:17-0400 Pulse Oximetry 97 % Sunshine Carvajal LPN [facility] Work Phone: 03-24-2017 09:17-0400 Respiratory Rate 16 /min Sunshine Carvajal LPN [facility] Work Phone: 03-24-2017 09:17-0400 Weight 82.56 kg Sunshine Carvajal LPN [facility] Work Phone: Encounters Encounter Date Encounter Type Care Provider Facility Start: 04-15-2025 ambulatory [facility] Facility:[facility] Start: 03-08-2025 End: 03-08-2025 ambulatory [facility] Facility:[facility] Start: 04-13-2024 End: 04-13-[address] CHARLIE SANTOYO MD Facility:[facility] Start: 04-13-2024 End: 04-13-[address] CHARLIE SANTOYO MD [facility] Start: 12-27-2023 End: 12-27-2023 ambulatory [facility] Work Phone: Start: 12-27-2023 End: 12-27-2023 Patient encounter procedure [facility] Work Phone: Start: 05-04-2022 End: 05-04-2022 Patient encounter procedure [facility] Plan of Treatment Date Care Activity Detail Author Start: 03-24-2017 End: 03-24-2017 Appointment Appointment [facility] Work Phone: Patient Education [facility] [facility] Work Phone: Payers Date Payer Category Payer Self-pay [id number] 2025 Unknown [id number] 2024 Unknown [id number] 2015 Private Health Insurance [id number] 1960 Unknown [id number] Private Health Insurance [facility] [id number] Unknown [facility] [id number] Unknown [id number] Unknown [id number] Social History Date Type Detail Facility [facility]: [facility] Start: 1960 Sex Assigned At Male W [facility] Tobacco smoking status No Smokin g Status Entered [facility] Functional Status Date Assessment Result Facility 04-13-2024 Functional Status [facility] 04-13-2024 [facility] Evaluation + Plan note 04-13-2024 Note Date & Type Note Facility 04-13-2024 Evaluation + Plan note Extrac [facility] from: Title:Clinical Document Author:CHARLIE SANTOYO Date:04/13/24 [place] ADMISSION HISTORY AN D PHYSICIAL CHIEF COMPLAINT: HISTORY OF PRESENT ILLNESS: REVIEW OF SYSTEMS: ACTIVE PROBLEMS: No qualifying data available for Problems MEDICATIONS: Active Inpt Meds: None Active PRN Meds: None One Time Meds: None Active IV Meds: Lactated Ringers Infusion 1,000 mL (LR 1,000 mL) Start: 04/13/24 7:51:00 EDT, Rate: 50 mL/hr, 04/13/24 7:51:00 EDT ALLERGIES: (2) erythromycin sulfa drug FAMILY HISTORY: SOCIAL HISTORY: PHYSICAL EXAM: VITALS: [id number](kg) 04/13 07:5936.7--[id number] 81.8 24 Hr Tmax: 36.7 at 04/13 07:59 36 Hr Tmax: 36.7 at 04/13 07:59 Vital Signs are the last 5 in the past 48 hours. Weights display the last 5 within 7 days. Initial Wt: 04/13 81.8 kg 180 lb Current Wt: 04/13 81.8 kg 180 lb GENERAL: HEENT: CARDIOVASCULAR: RESPIRATORY: ABDOMEN: EXREMETIES: NEUROLOGICAL: PSYCHIATRIC: LABS: No 36hr Lab Data DIAGNOSTICS: IMPRESSION: PLAN: History and Physical Update I have examined the patient; reviewed the H&P and there are no changes to the H&P unless noted below. [facility] Discharge instructions 04-13-2024 Note Date & Type Note Facility 04-13-2024 Hospital Discharg e instructions Patient Education 04/13/2024 09:20:15 Colonoscopy, Adult, Care After Colonoscopy, Adult, Care After This sheet gives you information about how to care for yourself after your procedure. Your health care provider may also give you more specific instructions. If you have problems or questions, contact your health care provider. What can I expect after the procedure? After the procedure, it is common to have: A small amount of blood in your stool for 24 hours after the procedure. Some gas. Mild abdominal cramping or bloating. Follow these instructions at home: General instructions For the first 24 hours after the procedure: ?Do not drive or use machinery. ?Do not sign important documents. ?Do not drink alcohol. ?Do your regular daily activities at a slower pace than normal. ?Eat soft, zyuk-qj-vonjua foods. Take fxhi-ajs-eeiceeb or prescription medicines only as told by your health care provider. Relieving cramping and bloating Try walking around when you have cramps or feel bloated. Apply heat to your abdomen as told by your health care provider. Use a heat source that your health care provider recommends, such as a moist heat pack or a heating pad. ?Place a towel between your skin and the heat source. ?Leave the heat on for 20 30 minutes. ?Remove the heat if your skin turns bright red. This is especially important if you are unable to feel pain, heat, or cold. You may have a greater risk of getting burned. Eating and drinking Drink enough fluid to keep your urine pale yellow. Resume your normal diet as instructed by your health care provider. Avoid heavy or fried foods that are hard to digest. Avoid drinking alcohol for as long as instructed by your health care provider. Contact a health care provider if: You have blood in your stool 2 3 days after the procedure. Get help right away if: You have more than a small spotting of blood in your stool. You pass large blood clots in your stool. Your abdomen is swollen. You have nausea or vomiting. You have a fever. You have increasing abdominal pain that is not relieved with medicine. Summary After the procedure, it is common to have a small amount of blood in your stool. You may also have mild abdominal cramping and bloating. For the first 24 hours after the procedure, do not drive or use machinery, sign important documents, or drink alcohol. Contact your health care provider if you have a lot of blood in your stool, nausea or vomiting, a fever, or increased abdominal pain. This information is not intended to replace advice given to you by your health care provider. Make sure you discuss any questions you have with your health care provider. Document Released: 05/21/2005 Document Revised: 07/30/2018 Document Reviewed: 12/18/2016 [employer] Patient Education 2020 [employer]. 04/13/2024 09:20:10 Monitored Anesthesia Care, Care After Monitored Anesthesia Care, Care After These instructions provide you with information about caring for yourself after your procedure. Your health care provider may also give you more specific instructions. Your treatment has been planned according to current medical practices, but problems sometimes occur. Call your health care provider if you have any problems or questions after your procedure. What can I expect after the procedure? After your procedure, you may: Feel sleepy for several hours. Feel clumsy and have poor balance for several hours. Feel forgetful about what happened after the procedure. Have poor judgment for several hours. Feel nauseous or vomit. Have a sore throat if you had a breathing tube during the procedure. Follow these instructions at home: For at least 24 hours after the procedure: Have a responsible adult stay with you. It is important to have someone help care for you until you are awake and alert. Rest as needed. Do not: ?Participate in activities in which you could fall or become injured. ?Drive. ?Use heavy machinery. ?Drink alcohol. ?Take sleeping pills or medicines that cause drowsiness. ?Make important decisions or sign legal documents. ?Take care of children on your own. Eating and drinking Follow the diet that is recommended by your health care provider. If you vomit, drink water, juice, or soup when you can drink without vomiting. Make sure you have little or no nausea before eating solid foods. General instructions Take ylmd-jhx-stttbqo and prescription medicines only as told by your health care provider. If you have sleep apnea, surgery and certain medicines can increase your risk for breathing problems. Follow instructions from your health care provider about wearing your sleep device: ?Anytime you are sleeping, including during daytime naps. ?While taking prescription pain medicines, sleeping medicines, or medicines that make you drowsy. If you smoke, do not smoke without supervision. Keep all follow-up visits as told by your health care provider. This is important. Contact a health care provider if: You keep feeling nauseous or you keep vomiting. You feel light-headed. You develop a rash. You have a fever. Get help right away if: You have trouble breathing. Summary For several hours after your procedure, you may feel sleepy and have poor judgment. Have a responsible adult stay with you for at least 24 hours or until you are awake and alert. This information is not intended to replace advice given to you by your health care provider. Make sure you discuss any questions you have with your health care provider. Document Released: 01/27/2017 Document Revised: 01/05/2019 Document Reviewed: 01/27/2017 [employer] Patient Education 2020 [employer]. Follow Up Care 03/26/2024 12:55:51 With:CHARLIE SANTOYO MD Address: [address] [place] [phone] When: Unknown Comments:Follow-up as needed [facility] Clinical Note 04-13-2024 Note Date & Type Note Facility 04-13-2024 Note Date of Service April 13, 2024 Procedure Name Colonoscopy to the cecum Consent Taken before procedure Indication Patient with a history of colon polyps Location [facility] Pre-Procedure Exam Screening colonoscopy Procedural Sedation Anesthesia provided a MAC Technique The patient was brought to the endoscopy suite placed left shoulder down. The had excellent preparation there were no obvious large polyps seen. In the transverse colon was a previous tattoo from a larger polyp there were no no evidence of regrowth of the polyp. Across the transverse colon and below the splenic flexure there were no obvious large polyps seen there was good visualization throughout down to the distal sigmoid and rectal mucosa remained normal retroflexion performed the rectum showed internal hemorrhoids. Was decompressed the patient tolerated the procedure well Post-Procedure Exam Screening colonoscopy Findings No obvious large polyps seen Complications None apparent Total Time Approximately 25 minutes Assessment/Plan Orders: Lactated Ringers Infusion 1,000 mL(LR 1,000 mL), 1000 mL, Intravenous Bedrest, 04/13/24 9:18:00 EDT, Strict, continuous, Constant order, Lying on side until alert or as ordered Bedrest, 04/13/24 9:18:00 EDT, Strict, continuous, Constant order, Lying on side until alert or as ordered Call Parameters, 04/13/24 9:18:00 EDT, Notify for vomiting, severe pain, signs of bleeding, severe abdominal pain, distention or rigidity, Constant order Communication Order (scheduled), 04/13/24 7:51:00 EDT, Once, 04/13/24 7:51:00 EDT, Pathology Tissue Request Communication Order (scheduled), 04/13/24 7:51:00 EDT, Once, 04/13/24 7:51:00 EDT, Urine Test or waiver for women of child bearing age Communication Order (scheduled), 04/13/24 7:51:00 EDT, Once, 04/13/24 7:51:00 EDT, Fasting Blood Sugar priot to procedure of patient is diabetic Diet Order, 04/13/24 9:18:00 EDT, Start Meal: Next meal, Clear Liquid Diet, Post exam or after gag reflex returns if EGD, Constant Order, : N/A, : N/A Discharge, 04/13/24 7:51:00 EDT, Discharged to: Home, when able to ambulate and after being seen by physician Discharge Activity, NO activity restrictions, 04/13/24 9:18:00 EDT Discharge Diet, Follow the post-operative/post-procedure diet instructions provided by your physician's office., 04/13/24 9:18:00 EDT Discharge Wound Care, Follow the post-operative/post-procedure wound care instructions provided by your physician's office., 04/13/24 9:18:00 EDT Post Procedure Assessment, 04/13/24 9:18:00 EDT, Stop Date 04/13/24 9:18:00 EDT, [facility] in [facility] until Erick Score of 12 or Preprocedure Sign Consent, 04/13/24 7:51:00 EDT, Once, For Colonoscopy Vital Signs, 04/13/24 9:18:00 EDT, q15min, 1 hour(s), 04/13/24 10:15:00 EDT Vital Signs, 04/13/24 9:18:00 EDT, q30min, 1 hour(s), 04/13/24 10:00:00 EDT Vital Signs PRN, 04/13/24 9:18:00 EDT, PRN order Follow Up/Recommendation Get a colonoscopy in 7 to 10 years Digitally Signed by CHARLIE SANTOYO MD on 04/13/2024 09:20 AM [facility] Summary of episode note 04-13-2024 Note Date & Type Note Facility 04-13-2024 Summary of episode note Discharge Instructions Thank you for allowing [place] to assist you with your healthcare needs. The following is important discharge information regarding your hospital visit. Your Care Team SHYLA DOMINGUEZ MD Your Diagnosis Colonoscopy What to do next Follow Up Appointments Follow Up with CHARLIE SANTOYO MD Where:[address] [place] [address]- [phone] Additional Information: Follow-up as needed The Following Activity and Diet Have Been Ordered for You Discharge Activity - Ordered -- NO activity restrictions, 04/13/24 9:18:00 EDT Discharge Diet - Ordered -- Follow the post-operative/post-procedure diet instructions provided by your physician's office., 04/13/24 9:18:00 EDT The Following Equipment Has Been Ordered for You Discharge Home Equipment Discharge Wound Care - Ordered -- Follow the post-operative/post-procedure wound care instructions provided by your physician's office., 04/13/24 9:18:00 EDT Allergies erythromycin sulfa drug Medications Please ask your primary doctor or pharmacist before taking any other medication not listed, including over the counter drugs, herbal medications, vitamins and or supplements as they may interact with your home medications. Please take this list to your next doctor s visit. Bring all medications you take, including over the counter medications, herbals and other supplements with you to your doctor s visit. Patients and families are reminded to discard old lists and to update any records with all medication providers or retail pharmacies. Education Materials Colonoscopy, Adult, Care After This sheet gives you information about how to care for yourself after your procedure. Your health care provider may also give you more specific instructions. If you have problems or questions, contact your health care provider. What can I expect after the procedure? After the procedure, it is common to have: A small amount of blood in your stool for 24 hours after the procedure. Some gas. Mild abdominal cramping or bloating. Follow these instructions at home: General instructions For the first 24 hours after the procedure: ? Do not drive or use machinery. ? Do not sign important documents. ? Do not drink alcohol. ? Do your regular daily activities at a slower pace than normal. ? Eat soft, cawa-vk-broibf foods. Take vujm-buy-dbmskts or prescription medicines only as told by your health care provider. Relieving cramping and bloating Try walking around when you have cramps or feel bloated. Apply heat to your abdomen as told by your health care provider. Use a heat source that your health care provider recommends, such as a moist heat pack or a heating pad. ? Place a towel between your skin and the heat source. ? Leave the heat on for 20 30 minutes. ? Remove the heat if your skin turns bright red. This is especially important if you are unable to feel pain, heat, or cold. You may have a greater risk of getting burned. Eating and drinking Drink enough fluid to keep your urine pale yellow. Resume your normal diet as instructed by your health care provider. Avoid heavy or fried foods that are hard to digest. Avoid drinking alcohol for as long as instructed by your health care provider. Contact a health care provider if: You have blood in your stool 2 3 days after the procedure. Get help right away if: You have more than a small spotting of blood in your stool. You pass large blood clots in your stool. Your abdomen is swollen. You have nausea or vomiting. You have a fever. You have increasing abdominal pain that is not relieved with medicine. Summary After the procedure, it is common to have a small amount of blood in your stool. You may also have mild abdominal cramping and bloating. For the first 24 hours after the procedure, do not drive or use machinery, sign important documents, or drink alcohol. Contact your health care provider if you have a lot of blood in your stool, nausea or vomiting, a fever, or increased abdominal pain. This information is not intended to replace advice given to you by your health care provider. Make sure you discuss any questions you have with your health care provider. Document Released: 05/21/2005 Document Revised: 07/30/2018 Document Reviewed: 12/18/2016 [employer] Patient Education 2020 [employer] Monitored Anesthesia Care, Care After These instructions provide you with information about caring for yourself after your procedure. Your health care provider may also give you more specific instructions. Your treatment has been planned according to current medical practices, but problems sometimes occur. Call your health care provider if you have any problems or questions after your procedure. What can I expect after the procedure? After your procedure, you may: Feel sleepy for several hours. Feel clumsy and have poor balance for several hours. Feel forgetful about what happened after the procedure. Have poor judgment for several hours. Feel nauseous or vomit. Have a sore throat if you had a breathing tube during the procedure. Follow these instructions at home: For at least 24 hours after the procedure: Have a responsible adult stay with you. It is important to have someone help care for you until you are awake and alert. Rest as needed. Do not: ? Participate in activities in which you could fall or become injured. ? Drive. ? Use heavy machinery. ? Drink alcohol. ? Take sleeping pills or medicines that cause drowsiness. ? Make important decisions or sign legal documents. ? Take care of children on your own. Eating and drinking Follow the diet that is recommended by your health care provider. If you vomit, drink water, juice, or soup when you can drink without vomiting. Make sure you have little or no nausea before eating solid foods. General instructions Take xokh-rfi-prnpbgd and prescription medicines only as told by your health care provider. If you have sleep apnea, surgery and certain medicines can increase your risk for breathing problems. Follow instructions from your health care provider about wearing your sleep device: ? Anytime you are sleeping, including during daytime naps. ? While taking prescription pain medicines, sleeping medicines, or medicines that make you drowsy. If you smoke, do not smoke without supervision. Keep all follow-up visits as told by your health care provider. This is important. Contact a health care provider if: You keep feeling nauseous or you keep vomiting. You feel light-headed. You develop a rash. You have a fever. Get help right away if: You have trouble breathing. Summary For several hours after your procedure, you may feel sleepy and have poor judgment. Have a responsible adult stay with you for at least 24 hours or until you are awake and alert. This information is not intended to replace advice given to you by your health care provider. Make sure you discuss any questions you have with your health care provider. Document Released: 01/27/2017 Document Revised: 01/05/2019 Document Reviewed: 01/27/2017 [employer] Patient Education 2020 [employer] Additional Information VACCINATE! IT SAVES LIVES! Members of the community who have not yet received the COVID-19 vaccine and would like to receive it can visit one of [facility] vaccine clinics. There are many vaccine clinic locations within the [facility]. For locations and available times, please visit https://gettheshot.coronavirus.[place].gov/. It is important to note that some COVID mobile vaccine clinics are held outdoors and may be canceled in rainy or stormy conditions. To learn more about pediatric vaccinations (ages 5-11), we invite you to visit the [facility] webpage. https://www.[facility].org/pag es/3896-Yhsea-Stspnhgwssd-Frequent ft-Ejybi-Ppkxufrqe.html To learn more about the COVID-19 vaccine, we invite you to visit the CDC website for a list of frequently asked questions.https://www.cdc.gov/bibi navirus/2019-ncov/vaccines/faq.htm l [employer] Patient Portal Access Instructions: Stay connected with your healthcare team and access your personal medical information anytime with the [employer] Patient Portal. Please follow the directions below to create your [employer] account: 1.Access the email account you provided upon registration to the hospital/physician office.2.Look for an invitation email from [facility].3.Open the email and access the invitation link: Accept Invitation to [employer].4.Fill in the required rosales to create your account. To access your account, visit [employer] [employer]. Click the blue button labeled Access Patient Portal and then log in with the username and password that you created in the steps above. You will be able to view your test results, lab results, a summary of your visits, upcoming appointments and more. There is also a convenient messaging option where you can send secure messages to your provider. In addition, you will have the ability to download any documents or summaries to your computer and/or send the information securely to a physician. Remember that your healthcare information is confidential, so carefully consider who you will allow to register on the [facility] Patient Portal for access to your information. You can also access the [employer] Patient Portal on the [employer] twila. Simply click on Patient Portal and then log into your account. If you would like to receive a full copy of your medical records, please contact the [facility] Medical Records Department by calling [phone], Saturday through Saturday between 8 a.m. and 4:30 p.m. HOW TO SAFELY DISPOSE OF PRESCRIPTION MEDICATIONS Please use one of the following methods to safely dispose of your unused medications. 1.Use a drug disposal kit: the drug disposal pouch allows you to safely discard your old and unused drugs. Ask your nurse to give you one when you are discharged.2.Visit a local take-back location: Many local pharmacies and police departments have programs that collect old and unwanted prescription drugs. Call your local pharmacy or go to http://Iencuentra.[employer]/2I2Rj9m to find one close to you.3.Make use of household items: Use cat litter or old coffee grounds to dispose medications if other options are not available. Mix your drugs with these household products, seal them in an airtight container and throw it into the garbage. Call [facility]: [phone] to be sure your drugs can be disposed of in this way. Some medicines may require a different approach.4.Never flush your medications down the toilet. IF YOU HAVE BEEN PRESCRIBED AN OPIOID FOR PAIN If you have been prescribed an opioid (such as hydrocodone, oxycodone or morphine), it is critical to understand the possible side effects and risks of opioid pain medications. Even when taken as directed, opioids can have several side effects including: Tolerance, meaning you might need to take more of a medication for the same pain relief. Nausea, vomiting and/or constipation. Sleepiness, dizziness, dry mouth, confusion, depression or itching. Physical dependence, meaning you have withdrawal symptoms when a medication is stopped, can develop within a few days. KNOW YOUR RESPONSIBILITIES It is important to know exactly how much and how often to take the opioid pain medications you are prescribed. Never take opioids in higher amounts or more often than prescribed. Do not combine opioids with alcohol or other drugs that cause drowsiness, such as benzodiazepines, also known as benzos, including diazepam and alprazolam, muscle relaxants or sleep aids. Never sell or share prescription opioids. This is illegal. Store opioids in a secure place and out of reach of others (including children, family, friends and visitors). The last page of this document has been signed and retained as a CHART COPY. Signatures Patient Education Materials Colonoscopy, Adult, Care After Monitored Anesthesia Care, Care After Medication Leaflets My discharge plan and instructions have been reviewed and explained to me and IFIONA TIMOTHY A understand my current condition and have read and understand these discharge instructions. I have received a written copy of the plan/instructions. If I have questions, I am aware that I should contact my doctor. Patient/Queen'S Counsel Signature: Date/Time: Relationship to Patient: ___ Witness Name/Signature: Date/Time: [facility] Clinical Note 04-13-2024 Note Date & Type Note Facility 04-13-2024 Note [facility] ADMISSION HISTORY AND PHYSICIAL CHIEF COMPLAINT: HISTORY OF PRESENT ILLNESS: REVIEW OF SYSTEMS: ACTIVE PROBLEMS: No qualifying data available for Problems MEDICATIONS: Active Inpt Meds: None Active PRN Meds: None One Time Meds: None Active IV Meds: Lactated Ringers Infusion 1,000 mL (LR 1,000 mL) Start: 04/13/24 7:51:00 EDT, Rate: 50 mL/hr, 04/13/24 7:51:00 EDT ALLERGIES: (2) erythromycin sulfa drug FAMILY HISTORY: SOCIAL HISTORY: PHYSICAL EXAM: VITALS: [id number](k g) 04/13 07:5936.7--758348HQ28/24 81.8 24 Hr Tmax: 36.7 at 04/13 07:59 36 Hr Tmax: 36.7 at 04/13 07:59 Vital Signs are the last 5 in the past 48 hours. Weights display the last 5 within 7 days. Initial Wt: 04/13 81.8 kg 180 lb Current Wt: 04/13 81.8 kg 180 lb GENERAL: HEENT: CARDIOVASCULAR: RESPIRATORY: ABDOMEN: EXREMETIES: NEUROLOGICAL: PSYCHIATRIC: LABS: No 36hr Lab Data DIAGNOSTICS: IMPRESSION: PLAN: History and Physical Update I have examined the patient; reviewed the H&P and there are no changes to the H&P unless noted below. Digitally Signed by CHARLIE SANTOYO MD on 04/13/2024 09:02 AM [facility] Anesthesiology Consult note 04-13-2024 Note Date & Type Note Facility 04-13-2024 Anesthesiology Consult note Patient: TALYA JAIMES Age: 64 years Sex: Male : 1960 Associated Diagnoses: None Author: ABDOULAYE CHUNG APRN-SALES ENABLEMENT ANALYST Preoperative Information Time of last food or liquid consumption: 04/13/2024 05:00:00 Anesthesia history Patient's history: negative. Family's history: negative. Review of Systems Ear/Nose/Mouth/Throat: Negative. Respiratory: Negative. Cardiovascular: Negative. Gastrointestinal: Negative. Genitourinary: Negative. Endocrine: Negative. Musculoskeletal: Negative. Integumentary: Negative. Neurologic: Negative. Health Status Allergies: Allergic Reactions (Selected) Severity Not Documented Erythromycin- No reactions were documented. Sulfa drug- No reactions were documented., Allergies (2) ActiveSeverityReaction erythromycinNone Documented sulfa drugNone Documented Current medications: (Selected) Inpatient Medications Ordered LR 1,000 mL: 50 mL/hr, Intravenous, Medications (1) Active Scheduled: (0) Continuous: (1) Lactated Ringers 1,000 mL 1,000 mL, Intravenous, 50 mL/hr PRN: (0) Problem list: No qualifying data available Histories Past Medical History: No active or resolved past medical history items have been selected or recorded. Family History: No family history items have been selected or recorded. Procedure history: No active procedure history items have been selected or recorded. Social History: Social & Psychosocial Habits No Data Available Physical Examination Vital Signs 04/13/2024 8:06 EDT Systolic Blood Pressure Non-Invasive 150 mmHg HI Diastolic Blood Pressure Non-Invasive 102 mmHg >HHI 04/13/2024 7:59 EDT Temperature Temporal Artery 36.7 DegC Apical Heart Rate 70 bpm Respiratory Rate 11 br/min Systolic Blood Pressure Non-Invasive 162 mmHg HI Diastolic Blood Pressure Non-Invasive 106 mmHg >HHI Blood Pressure Method Automatic Blood Pressure Location Left arm Blood Pressure Cuff Size Large Vital Signs (last 24 hrs) Last Charted Temp Zazsmxlm10.7 DegC (SERG 24 07:59) Heart Rate Evccxb33 bpm (APR 13 07:59) SBPH 150 mmHg (APR 13 08:06) DBPC 102mmHg (APR 13 08:06) BMI21.96 (APR 13 07:59) Measurements from flowsheet : Measurements 04/13/2024 7:59 EDT Height 193 cm Admission Weight 81.8 kg Weight Method Stated [place] Body Weight 86.76 kg BSA Admission 2.12 Body Mass Index 21.96 kg/m2 Pain assessment: Pain Assessment 04/13/2024 7:59 EDT Primary Pain Intensity 0 Pain Scale Type 0-10 Pain scale . General: Alert and oriented. Airway: Normal temporomandibular joint mobility. Mallampati classification: II (soft palate, fauces, uvula visible). Head: Normocephalic. Dentition Evaluation: Own teeth. Neck: Supple. Respiratory: Lungs are clear to auscultation. Cardiovascular: Normal rate. Heart Sounds: Normal. Gastrointestinal: Soft. Musculoskeletal Normal range of motion. Integumentary: Intact. Neurologic: Alert, Oriented. Review / Management Results review: No qualifying data available , Lab results 04/13/2024 8:06 EDT Systolic Blood Pressure Non-Invasive 150 mmHg HI Diastolic Blood Pressure Non-Invasive 102 mmHg >HHI 04/13/2024 8:03 EDT Urinary Elimination Voiding, no difficulties IV Present Present Allergies Yes Anesthesia Extension Set Applied Yes Structural Steel Engineer On Yes Colon Prep Results Excellent Consent Form Signed Yes Patient Dressed In Hospital gown History & Physical Update On Chart Yes History & Physical On Chart Yes Bowel Prep Completed Yes NPO Status Maintained Allergy Band on and Verified Yes Patient ID Band on and Verified Yes Implants Verified Yes Pacemaker/AICD Verified Yes Site Verified by Patient/Family Yes Anesthesia Consent Signed Yes Last Fluid Intake 04/13/2024 5:00 Last Food Intake 04/12/2024 8:00 04/13/2024 7:59 EDT Designated Person #1 We May Share JOSÉ gomez Designated Person #1 Relationship Spouse Height 193 cm Admission Weight 81.8 kg Weight Method Stated [place] Body Weight 86.76 kg BSA Admission 2.12 Body Mass Index 21.96 kg/m2 Temperature Temporal Artery 36.7 DegC Apical Heart Rate 70 bpm Respiratory Rate 11 br/min Systolic Blood Pressure Non-Invasive 162 mmHg HI Diastolic Blood Pressure Non-Invasive 106 mmHg >HHI Blood Pressure Method Automatic Blood Pressure Location Left arm Blood Pressure Cuff Size Large Primary Pain Intensity 0 Pain Scale Type 0-10 Pain scale Heart Rhythm Regular Oxygen Therapy Room air Oxygen Saturation 97 % Status N/A Sensory Deficits None Infectious Disease Symptoms Patient states no symptoms Infectious Disease Recent Exposure No Alcohol and Drug Use No Employee of Institutional Living No Health Care Employee No History of Exposure to TB No History of Positive Chest X-Ray for TB No History of Positive TB Skin Test No Homeless No Known Immunosuppression No Recent Immigrant No Resident of Institutional Living No Bloody Sputum No Fatigue No Fever No Loss of Appetite No Night Sweats No Persistent Cough > 3 Weeks No Weight Loss No Arrival Mode Ambulatory Glasses Yes Accompanied By On Arrival Family GI Prep Sutab GI Prep Completed Yes GI Prep Results Yellow, Clear Barriers to Learning None evident Teaching Method Explanation, Printed materials Preferred Spoken Language Tongan Preferred Written Language Tongan Information Given by Patient Patient's Current Physicians Joliff Discharge To, Anticipated Home independently Activity Status ADL Awake Standard Safety ID band on, Allergy Band on, Call device within reach, Bed in low position, Wheels locked, Upper/Half-Length side-rails up, Safety level maintained Prev Test Positive/Diagnosis w/COVID-19 No Current Quarantine/Isolated any Illness No Any Contact with Sick Animals/Birds No Traveled Anywhere in Last 30 Days No N/A Personal Devices, Patient Valuables None Admission Note-Nursing Procedure/Therapy Intake . Assessment and Plan [place] [employer] Anesthesiologists (ASA) physical status classification: Class I. Anesthetic Preoperative Plan Anesthetic technique: MAC. Postoperative pain management: Per surgeon. Informed consent: signed by patient. Digitally Signed by ABDOULAYE CHUNG on 04/13/2024 08:08 AM [facility] Anesthesiology Consult note 04-13-2024 Note Date & Type Note Facility 04-13-2024 Anesthesiology Consult note ABDOULAYE CHUNG: PERFORM, SIGN, VERIFY Event Display: Anesthesiology Consultation Authored Date: [id number] Patient: TALYA JAIMES Age: 64 years Sex: Male : 1960 Associated Diagnoses: None Author: ABDOULAYE CHUNG Preoperative Information Time of last food or liquid consumption: 04/13/2024 05:00:00 Anesthesia history Patient's history: negative. Family's history: negative. Review of Systems Ear/Nose/Mouth/Throat: Negative. Respiratory: Negative. Cardiovascular: Negative. Gastrointestinal: Negative. Genitourinary: Negative. Endocrine: Negative. Musculoskeletal: Negative. Integumentary: Negative. Neurologic: Negative. Health Status Allergies: Allergic Reactions (Selected) Severity Not Documented Erythromycin- No reactions were documented. Sulfa drug- No reactions were documented., Allergies (2) ActiveSeverityReaction erythromycinNone Documented sulfa drugNone Documented Current medications: (Selected) Inpatient Medications Ordered LR 1,000 mL: 50 mL/hr, Intravenous, Medications (1) Active Scheduled: (0) Continuous: (1) Lactated Ringers 1,000 mL 1,000 mL, Intravenous, 50 mL/hr PRN: (0) Problem list: No qualifying data available Histories Past Medical History: No active or resolved past medical history items have been selected or recorded. Family History: No family history items have been selected or recorded. Procedure history: No active procedure history items have been selected or recorded. Social History: Social & Psychosocial Habits No Data Available Physical Examination Vital Signs 04/13/2024 8:06 EDT Systolic Blood Pressure Non-Invasive 150 mmHg HI Diastolic Blood Pressure Non-Invasive 102 mmHg >HHI 04/13/2024 7:59 EDT Temperature Temporal Artery 36.7 DegC Apical Heart Rate 70 bpm Respiratory Rate 11 br/min <LLOW Systolic Blood Pressure Non-Invasive 162 mmHg HI Diastolic Blood Pressure Non-Invasive 106 mmHg >HHI Blood Pressure Method Automatic Blood Pressure Location Left arm Blood Pressure Cuff Size Large Vital Signs (last 24 hrs) Last Charted Temp Dthxeoaf81.7 DegC (APR 13 07:59) Heart Rate Awvkue73 bpm (APR 13 07:59) SBPH 150 mmHg (APR 13 08:06) DBPC 102mmHg (APR 13 08:06) BMI21.96 (APR 13 07:59) Measurements from flowsheet : Measurements 04/13/2024 7:59 EDT Height 193 cm Admission Weight 81.8 kg Weight Method Stated [place] Body Weight 86.76 kg BSA Admission 2.12 Body Mass Index 21.96 kg/m2 Pain assessment: Pain Assessment 04/13/2024 7:59 EDT Primary Pain Intensity 0 Pain Scale Type 0-10 Pain scale . General: Alert and oriented. Airway: Normal temporomandibular joint mobility. Mallampati classification: II (soft palate, fauces, uvula visible). Head: Normocephalic. Dentition Evaluation: Own teeth. Neck: Supple. Respiratory: Lungs are clear to auscultation. Cardiovascular: Normal rate. Heart Sounds: Normal. Gastrointestinal: Soft. Musculoskeletal Normal range of motion. Integumentary: Intact. Neurologic: Alert, Oriented. Review / Management Results review: No qualifying data available , Lab results 04/13/2024 8:06 EDT Systolic Blood Pressure Non-Invasive 150 mmHg HI Diastolic Blood Pressure Non-Invasive 102 mmHg >HHI 04/13/2024 8:03 EDT Urinary Elimination Voiding, no difficulties IV Present Present Allergies Yes Anesthesia Extension Set Applied Yes Structural Steel Engineer On Yes Colon Prep Results Excellent Consent Form Signed Yes Patient Dressed In Hospital gown History & Physical Update On Chart Yes History & Physical On Chart Yes Bowel Prep Completed Yes NPO Status Maintained Allergy Band on and Verified Yes Patient ID Band on and Verified Yes Implants Verified Yes Pacemaker/AICD Verified Yes Site Verified by Patient/Family Yes Anesthesia Consent Signed Yes Last Fluid Intake 04/13/2024 5:00 Last Food Intake 04/12/2024 8:00 04/13/2024 7:59 EDT Designated Person #1 We May Share JOSÉ gomez Designated Person #1 Relationship Spouse Height 193 cm Admission Weight 81.8 kg Weight Method Stated [place] Body Weight 86.76 kg BSA Admission 2.12 Body Mass Index 21.96 kg/m2 Temperature Temporal Artery 36.7 DegC Apical Heart Rate 70 bpm Respiratory Rate 11 br/min <LLOW Systolic Blood Pressure Non-Invasive 162 mmHg HI Diastolic Blood Pressure Non-Invasive 106 mmHg >HHI Blood Pressure Method Automatic Blood Pressure Location Left arm Blood Pressure Cuff Size Large Primary Pain Intensity 0 Pain Scale Type 0-10 Pain scale Heart Rhythm Regular Oxygen Therapy Room air Oxygen Saturation 97 % Status N/A Sensory Deficits None Infectious Disease Symptoms Patient states no symptoms Infectious Disease Recent Exposure No Alcohol and Drug Use No Employee of Institutional Living No Health Care Employee No History of Exposure to TB No History of Positive Chest X-Ray for TB No History of Positive TB Skin Test No Homeless No Known Immunosuppression No Recent Immigrant No Resident of Institutional Living No Bloody Sputum No Fatigue No Fever No Loss of Appetite No Night Sweats No Persistent Cough > 3 Weeks No Weight Loss No Arrival Mode Ambulatory Glasses Yes Accompanied By On Arrival Family GI Prep Sutab GI Prep Completed Yes GI Prep Results Yellow, Clear Barriers to Learning None evident Teaching Method Explanation, Printed materials Preferred Spoken Language Tongan Preferred Written Language Tongan Information Given by Patient Patient's Current Physicians Joliff Discharge To, Anticipated Home independently Activity Status ADL Awake Standard Safety ID band on, Allergy Band on, Call device within reach, Bed in low position, Wheels locked, Upper/Half-Length side-rails up, Safety level maintained Prev Test Positive/Diagnosis w/COVID-19 No Current Quarantine/Isolated any Illness No Any Contact with Sick Animals/Birds No Traveled Anywhere in Last 30 Days No N/A Personal Devices, Patient Valuables None Admission Note-Nursing Procedure/Therapy Intake . Assessment and Plan [place] [employer] Anesthesiologists (ASA) physical status classification: Class I. Anesthetic Preoperative Plan Anesthetic technique: MAC. Postoperative pain management: Per surgeon. Informed consent: signed by patient. Digitally Signed by ABDOULAYE CHUNG on 04/13/2024 08:08 AM [facility] Evaluation note Note Date & Type Note Facility Evaluation note No assessment information availa [facility] Work Phone: Hospital course Narrative Note Date & Type Note Facility Hospital course Narrative No data available for this section [facility] Chief Complaint and Reason for Visit Chief Complaint EORDER Summary Purpose Family History No Family History Records Found Advance Directives No Advanced Directives Records FoundNo Advanced Directives Records Found Additional Source Comments Goals (unrecognized section and content) Goals may be documented in a n alternate sectionGoals may be documented in an alternate section No data available for this section Care Teams (unrecognized sec tion and content) Team Status: Active Member Role Status Dates Dr. Masoud Bridges MD Family Provider Active Dr. Shyla Dominguez MD Primary Care Provider Active Team Status: Inactive Member Role Status Dates Dr. Shyla Dominguez MD Primary Care Provider Active Chuyita Stevens PATIENT REGISTRATION SPECIALIST, PATIENT REGISTRATION SPECIALIST-C Attending Provider, Referring Pro vider Active (unrecognized sect ion and content) No Status Records FoundNo Status Records Found INFORMATION SOURCE (unrecogn ized section and content) DATE CREATED AUTHOR 04/26/2024 [facility] ([place]) DATE CREATED AUTHOR AUTHOR'S ESTEPHANIA DAVIDEMILENA 04/11/2025 [facility] FOR RECORDS PERTAINING TO PATIENTS WHO ARE [...] BE BASED ON THE PRIMARY CLINICAL RECORDS. [employer] provides no warranty or guarantee of the accuracy or completeness of information in this document.
== END | disposition home or self-care (01) ==
LOC: CVS 08:02
PROVIDERS: PCP Family Medicine; Referring Provider Family Medicine; Visit Provider Family Medicine
DX: I51.7 Cardiomegaly (principal)
CPT/HCPCS: 93306